=== PATIENT | male | born 2000 | race Caucasian/White ===

== ENCOUNTER 2025-02-17 20:47 | Emergency (ER) | payer OTHER ==
[~2025-02-17] VITALS: Ht 167.6 cm; Wt 82.0 kg
[2025-02-17 21:03] VITALS: O2SAT 99
[2025-02-18] MEDS ORDERED: IBUP-2437 MT (00:40)
[2025-02-18 00:53] VITALS: BP 131/89; PULSE 84; RESP 16; TEMP 36.8; O2SAT 99
== END 2025-02-18 00:55 | disposition home or self-care (01) ==
LOC: ER 20:47
DX: R20.0 Anesthesia of skin (principal)
CPT/HCPCS: 99284